=== PATIENT | female | born 1980 | race Caucasian/White ===

== ENCOUNTER 2016-06-14 13:19 | Emergency (ER) | payer BC ==
[2016-06-14] MEDS ORDERED: LORazepam 2 MG/ML MDV IVPUSH ONE (14:03)
[2016-06-14] MEDS ORDERED: Ketorolac 30 MG/ML SDV IVPUSH ONE (14:03)
[2016-06-14] MEDS ORDERED: Ondansetron 4 MG/2 ML SDV IVPUSH ONE (14:03)
[2016-06-14] MEDS ORDERED: Sodium Chloride 0.9% 1,000 ML IV ONE (14:03)
[2016-06-14] MEDS ORDERED: Ondansetron 4 MG/2 ML SDV ONE (14:19)
--- NOTE | 2016-06-14 14:29 | EDM.PDOC ---
ED HPI HEADACHE COMPLAINT - General Chief Complaint: Headache Stated Complaint: HEADACHE Time Seen by Provider: 06/14/16 14:00 Source of Information: Reports: Patient History Limitations: Reports: No limitations - History of Present Illness INITIAL COMMENTS - FREE TEXT/NARRATIVE: History of present illness: [35-year-old female presenting with the onset of migraine headache. Patient indicates she has chronic migraines and minimum of 2 per month and that she had taken her Imitrex with no relief. Patient indicates that she has 2 or 3 migraines a year that are at this level and it was require intervention beyond the Imitrex.] Review of systems: As per history of present illness and below otherwise all systems reviewed and negative. Past medical history: As per history of present illness and as reviewed below otherwise noncontributory. Surgical history: As per history of present illness and as reviewed below otherwise noncontributory. Social history: No reported history of drug or alcohol abuse. Family history: As per history of present illness and as reviewed below otherwise noncontributory. Physical exam: HEENT: Atraumatic, normocephalic, pupils reactive, negative for conjunctival pallor or scleral icterus, mucous membranes moist, throat clear, neck supple, nontender, trachea midline. Lungs: Clear to auscultation, breath sounds equal bilaterally, chest nontender. Heart: S1S2, regular, negative for clicks, rubs, or JVD. Abdomen: Soft, nondistended, nontender. Negative for masses or hepatosplenomegaly. Negative for costovertebral tenderness. Pelvis: Stable nontender. Genitourinary: Deferred. Rectal: Deferred. Extremities: Atraumatic, negative for cords or calf pain. Neurovascular unremarkable. Neuro: Awake, alert, oriented. Cranial nerves II through XII unremarkable. Cerebellum unremarkable. Motor and sensory unremarkable throughout. Exam nonfocal. Diagnostics: [] Therapeutics: [Ativan, Toradol, IV fluid, oxygen, Zofran] Impression: [Migraine headache] Plan: [As all headaches followup with PCP when necessary] Definitive disposition and diagnosis as appropriate pending reevaluation and review of above. - Related Data Allergies/ADRs: Allergies Allergy/AdvReac Type Severity Reaction Status Date / Time acetaminophen [From Midrin] Allergy Hives Verified 06/14/16 13:49 dichloralphenazone Allergy Hives Verified 06/14/16 13:49 [From Midrin] isometheptene mucate Allergy Hives Verified 06/14/16 13:49 [From Midrin] Penicillins Allergy Hives Verified 06/14/16 13:49 prochlorperazine Allergy Other Verified 06/14/16 13:49 [From Compazine] prochlorperazine edisylate Allergy Other Verified 06/14/16 13:49 [From Compazine] prochlorperazine maleate Allergy Other Verified 06/14/16 13:49 [From Compazine] Home Meds: Home Meds Acetaminophen/Diphenhydramine [Tylenol Pm Ex-Strength Caplet] 30 ml PO BEDTIME PRN 05/31/15 [History] Venlafaxine [Effexor XR] 75 mg PO DAILY 05/31/15 [History] SUMAtriptan [Imitrex] 1 tab PO ASDIRECTED PRN 06/14/16 [History] Past Medical History - Past Health History Medical/Surgical History: Denies Medical/Surgical History HEENT History: Reports: None Cardiovascular History: Reports: None Respiratory History: Reports: None Gastrointestinal History: Reports: None 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: Musculoskeletal History: Reports: None Neurological History: Reports: Migraines Psychiatric History: Reports: Anxiety, Depression Endocrine/Metabolic History: Reports: None Hematologic History: Reports: None Immunologic History: Reports: None Oncologic (Cancer) History: Reports: None Dermatologic History: Reports: None - Infectious Disease History Infectious Disease History: Reports: Chicken pox - Past Surgical History Head Surgeries/Procedures: Reports: None Other Female Surgeries/Procedures: IUD perforated thru the uterus 2005 Social & Family History - Family History Family Medical History: Noncontributory - Tobacco Use Smoking Status *Q: Current Every Day Smoker Years of Tobacco use: 6 Packs/Tins Daily: 0.5 Used Tobacco, but Quit: No Second Hand Smoke Exposure: No - Caffeine Use Caffeine Use: Reports: None - Alcohol Use Days Per Week of Alcohol Use: 0 - Recreational Drug Use Recreational Drug Use: No Drug Use in Last 12 Months: No ED ROS GENERAL - Review of Systems Review Of Systems: See Below (See history of present illness) - Physical Exam Exam: See Below (See history of present illness) Course - Vital Signs Last Recorded V/S: Last Vital Signs Temp 37.1 C 06/14/16 13:45 Pulse 75 06/14/16 13:45 Resp 18 06/14/16 13:45 BP 110/72 06/14/16 13:45 Pulse Ox 97 06/14/16 13:45 - Orders/Labs/Meds Meds: Medications Discontinued Medications Generic Name Dose Route Start Last Admin Trade Name Max PRN Reason Stop Dose Admin Sodium Chloride 1,000 mls @ 999 mls/hr 06/14/16 14:03 06/14/16 14:22 Normal Saline IV 06/14/16 15:03 999 mls/hr STAT ONE Administration Ketorolac Tromethamine 30 mg 06/14/16 14:03 06/14/16 14:22 Toradol IVPUSH 06/14/16 14:04 30 mg ONETIME ONE Administration Lorazepam 1 mg 06/14/16 14:03 06/14/16 14:25 Ativan IVPUSH 06/14/16 14:04 1 mg ONETIME ONE Administration Ondansetron HCl 8 mg 06/14/16 14:03 06/14/16 14:23 Zofran IVPUSH 06/14/16 14:04 8 mg ONETIME ONE Administration Ondansetron HCl Confirm 06/14/16 14:19 Zofran Administered 06/14/16 14:20 Dose 4 mg .ROUTE .STK-MED ONE Departure - Departure Time of Disposition: 15:35 Disposition: Home, Self-Care 01 Condition: good Clinical Impression: Migraine Instructions: Recurrent Migraine Headache, [id number] Forms: ED Department Discharge Additional Instructions: The following information is given to patients seen in the emergency department who are being discharged to home. This information is to outline your options for follow-up care. We provide all patients seen in our emergency department with a follow-up referral. The need for follow-up, as well as the timing and circumstances, are variable depending upon the specifics of your emergency department visit. If you don't have a primary care physician on staff, we will provide you with a referral. We always advise you to contact your personal physician following an emergency department visit to inform them of the circumstance of the visit and for follow-up with them and/or the need for any referrals to a consulting specialist. The emergency department will also refer you to a specialist when appropriate. This referral assures that you have the opportunity for follow-up care with a specialist. All of these measure are taken in an effort to provide you with optimal care, which includes your follow-up. Under all circumstances we always encourage you to contact your private physician who remains a resource for coordinating your care. When calling for follow-up care, please make the office aware that this follow-up is from your recent emergency room visit. If for any reason you are refused follow-up, please contact the [facility] Emergency Department at and asked to speak to the emergency department charge nurse. Followup with PCP 1-2 days Return to ED as needed as discussed
[2016-06-14 16:02] VITALS: BP 111/59
== END 2016-06-14 15:59 | disposition home or self-care (01) ==
LOC: MW.ED 13:19
DX: G43.909 Migraine, unspecified, not intractable, without status migrainosus (principal); F17.210 Nicotine dependence, cigarettes, uncomplicated; Z88.8 Allergy status to other drugs, medicaments and biological substances; Z79.899 Other long term (current) drug therapy
CPT/HCPCS: 96361; 96374; 96375; 99283; J1885; J2060; J2405; J7040; 99284

== ENCOUNTER 2017-01-07 11:34 | Emergency (ER) | payer BC ==
[2017-01-07 11:50] VITALS: BP 128/80
[2017-01-07] MEDS ORDERED: Ketorolac 30 MG/ML SDV IVPUSH ONE (11:58)
[2017-01-07] MEDS ORDERED: Sodium Chloride 0.9% 1,000 ML IV ONE (11:58)
[2017-01-07] MEDS ORDERED: Ondansetron 4 MG/2 ML SDV IVPUSH ONE (11:58)
--- NOTE | 2017-01-07 12:04 | EDM.PDOC ---
ED HPI GENERAL MEDICAL PROBLEM - General Chief Complaint: Headache Stated Complaint: HEADACHE Time Seen by Provider: 01/07/17 11:36 Source of Information: Reports: Patient History Limitations: Reports: No Limitations - History of Present Illness INITIAL COMMENTS - FREE TEXT/NARRATIVE: HISTORY AND PHYSICAL: History of present illness: Patient is a 36-year-old female who presents to the emergency room today with complaints of a migraine. States she started having migraines at the age of 20 and since that time has tried multiple treatments which include a daily preventing medication and abortive medication. Currently she uses Imitrex at the onset of a migraine which usually helps. This morning she states "it just came on without any warning and was unable to catch it in time". She was able to take an Imitrex with the onset of her migraine, but states "I hate how Imitrex makes me feel". Associated with nausea, one episode of emesis, light sensitivity, noise sensitivity. Patient states yesterday she flew here from [place], but otherwise felt healthy with no health complaints. Denies any chance of as she has had a tubal ligation and her has had a vasectomy. Patient had a head CT approximately 3-4 years ago, states this was normal. She denies any head injury or trauma since that time. Patient denies any chest pain, shortness of breath, abdominal pain, visual changes, fever or chills. Reports this headache is similar to previous headaches. Review of systems: As per history of present illness and below otherwise all systems reviewed and negative. Past medical history: As per history of present illness and as reviewed below otherwise noncontributory. Surgical history: As per history of present illness and as reviewed below otherwise noncontributory. Social history: No reported history of drug or alcohol abuse. Family history: As per history of present illness and as reviewed below otherwise noncontributory. Physical exam: Gen.: Nontoxic appearing 36-year-old female. Alert and oriented. Able to speak in full sentences without shortness of breath HEENT: Atraumatic, normocephalic, pupils equal and reactive bilaterally, negative for conjunctival pallor or scleral icterus, mucous membranes moist, throat clear, neck supple, no nuchal rigidity, nontender, trachea midline. Photophobia. Lungs: Clear to auscultation, breath sounds equal bilaterally, chest nontender. Heart: S1S2, regular rate and rhythm Abdomen: Soft, nondistended, nontender. Negative for masses or hepatosplenomegaly. Negative for costovertebral tenderness. Pelvis: Stable nontender. Genitourinary: Deferred. Rectal: Deferred. Extremities: Atraumatic, negative for cords or calf pain. Neurovascular unremarkable. Neuro: Awake, alert, oriented. Cranial nerves II through XII unremarkable. Cerebellum unremarkable. Motor and sensory unremarkable throughout. Exam nonfocal. After my physical examination. I did offer the patient a head CT, since this headache is similar to PREVIOUS headaches and she has no new injury or trauma, she declined at this time. Vital signs are reviewed by me. She will receive IV fluid and IV medications. 1245- after patient received her IV medications I went in to reevaluate her. She states she feels "somewhat better". I did offer her additional medications to help alleviate more of her migraine headache pain. She declined at this time. He states she would like to finish getting her IV fluids and then be discharged to home. Diagnostics: Declined Therapeutics: IV fluid, Zofran, Toradol Impression: Migraine headache Plan: 1. Please take the rest of the afternoon to rest in a quiet dark room. Continue to take your Imitrex as prescribed. 2. Follow-up with your primary care provider in the next 1-2 days. Return to the ED as needed and as discussed. Definitive disposition and diagnosis as appropriate pending reevaluation and review of above. Onset: Today Duration: Hour(s): Location: Reports: Head head Pain Score (Numeric/FACES): 8 - Related Data Allergies Allergy/AdvReac Type Severity Reaction Status Date / Time acetaminophen [From Midrin] Allergy Hives Verified 01/07/17 11:47 dichloralphenazone Allergy Hives Verified 01/07/17 11:47 [From Midrin] isometheptene mucate Allergy Hives Verified 01/07/17 11:47 [From Midrin] Penicillins Allergy Hives Verified 01/07/17 11:47 prochlorperazine Allergy Other Verified 01/07/17 11:47 [From Compazine] prochlorperazine edisylate Allergy Other Verified 01/07/17 11:47 [From Compazine] prochlorperazine maleate Allergy Other Verified 01/07/17 11:47 [From Compazine] Home Meds: Home Meds Acetaminophen/Diphenhydramine [Tylenol Pm Ex-Strength Caplet] 30 ml PO BEDTIME PRN 05/31/15 [History] Venlafaxine [Effexor XR] 75 mg PO DAILY 05/31/15 [History] SUMAtriptan [Imitrex] 0.5 tab PO ASDIRECTED PRN 06/14/16 [History] Past Medical History - Past Health History Medical/Surgical History: Denies Medical/Surgical History HEENT History: Reports: None Cardiovascular History: Reports: None Respiratory History: Reports: None 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 History: Reports: None Neurological History: Reports: Migraines Psychiatric History: Reports: Anxiety, Depression Endocrine/Metabolic History: Reports: None Hematologic History: Reports: None Immunologic History: Reports: None Oncologic (Cancer) History: Reports: None Dermatologic History: Reports: None - Infectious Disease History Infectious Disease History: Reports: Chicken Pox - Past Surgical History Head Surgeries/Procedures: Reports: None Female Surgical History: Reports: Breast Implant, Tubal Ligation, Other (See Below) Social & Family History - Family History Family Medical History: Noncontributory - Tobacco Use Smoking Status *Q: Current Every Day Smoker Years of Tobacco use: 6 Packs/Tins Daily: 1 Used Tobacco, but Quit: No Second Hand Smoke Exposure: No - Caffeine Use Caffeine Use: Reports: None - Alcohol Use Days Per Week of Alcohol Use: 0 - Recreational Drug Use Recreational Drug Use: No Drug Use in Last 12 Months: No ED ROS GENERAL - Review of Systems Review Of Systems: ROS reveals no pertinent complaints other than HPI. - Physical Exam Exam: See Below (See dictation) Course - Vital Signs Last Recorded V/S: Last Vital Signs Temp 36.2 C 01/07/17 11:34 Pulse 77 01/07/17 11:34 Resp 18 01/07/17 11:34 BP 128/80 01/07/17 11:34 Pulse Ox 100 01/07/17 11:34 - Orders/Labs/Meds Orders: Active Orders 24 hr Category Date Time Status Sodium Chloride 0.9% [Normal Saline] 1,000 ml Med 01/07/17 11:58 Active IV STAT Medication Orders Sodium Chloride (Normal Saline) 1,000 mls @ 999 mls/hr IV STAT ONE Stop: 01/07/17 12:58 Last Admin: 01/07/17 12:31 Dose: 999 mls/hr Meds: Medications Generic Name Dose Route Start Last Admin Trade Name Max PRN Reason Stop Dose Admin Sodium Chloride 1,000 mls @ 999 mls/hr 01/07/17 11:58 01/07/17 12:31 Normal Saline IV 01/07/17 12:58 999 mls/hr STAT ONE Administration Discontinued Medications Generic Name Dose Route Start Last Admin Trade Name Max PRN Reason Stop Dose Admin Ketorolac Tromethamine 30 mg 01/07/17 11:58 01/07/17 12:31 Toradol IVPUSH 01/07/17 11:59 30 mg ONETIME ONE Administration Ondansetron HCl 4 mg 01/07/17 11:58 01/07/17 12:31 Zofran IVPUSH 01/07/17 11:59 4 mg ONETIME ONE Administration Departure - Departure Time of Disposition: 12:55 Disposition: Home, Self-Care 01 Clinical Impression: Migraine - Discharge Information Referrals: PCP,None [Primary Care Provider] - Forms: ED Department Discharge Additional Instructions: My general discharge The following information is given to patients seen in the emergency department who are being discharged to home. This information is to outline your options for follow-up care. We provide all patients seen in our emergency department with a follow-up referral. The need for follow-up, as well as the timing and circumstances, are variable depending upon the specifics of your emergency department visit. If you don't have a primary care physician on staff, we will provide you with a referral. We always advise you to contact your personal physician following an emergency department visit to inform them of the circumstance of the visit and for follow-up with them and/or the need for any referrals to a consulting specialist. The emergency department will also refer you to a specialist when appropriate. This referral assures that you have the opportunity for follow-up care with a specialist. All of these measure are taken in an effort to provide you with optimal care, which includes your follow-up. Under all circumstances we always encourage you to contact your private physician who remains a resource for coordinating your care. When calling for follow-up care, please make the office aware that this follow-up is from your recent emergency room visit. If for any reason you are refused follow-up, please contact the [facility] Emergency Department at and asked to speak to the emergency department charge nurse. [facility] [address] [place] [id number] 1. Please take the rest of the afternoon to rest in a quiet dark room. Continue to take your Imitrex as prescribed. [id number] products such as Excedrin Migraine or Tylenol as you feel you need. 2. Follow-up with your primary care provider in the next 1-2 days. Return to the ED as needed and as discussed. - My Orders Last 24 Hours: My Active Orders 01/07/17 11:58 Sodium Chloride 0.9% [Normal Saline] 1,000 ml IV STAT - Assessment/Plan Last 24 Hours: My Active Orders 01/07/17 11:58 Sodium Chloride 0.9% [Normal Saline] 1,000 ml IV STAT
== END 2017-01-07 14:12 | disposition home or self-care (01) ==
LOC: MW.ED 11:34
DX: G43.909 Migraine, unspecified, not intractable, without status migrainosus (principal); F17.210 Nicotine dependence, cigarettes, uncomplicated; F32.9 Major depressive disorder, single episode, unspecified; Z98.51 Tubal ligation status; Z79.899 Other long term (current) drug therapy; Z88.6 Allergy status to analgesic agent; Z88.0 Allergy status to penicillin; Z88.8 Allergy status to other drugs, medicaments and biological substances
CPT/HCPCS: 96361; 96374; 96375; 99283; J1885; J2405; J7040; 99284